=== PATIENT | female | born 1940 | race Caucasian/White ===

== ENCOUNTER 2018-06-24 23:26 | Emergency (ER) | payer MEDICARE ==
[2018-06-24 23:47] VITALS: BMI 28.3
[2018-06-24 23:56] VITALS: TEMP 97.6
--- NOTE | 2018-06-25 00:55 | ED PDOC ---
Arrival/HPI - General Chief Complaint: Lower Extremity Problem/Injury Time Seen by Provider: 06/25/18 00:37 Historian: Patient - History of Present Illness Narrative History of Present Illness (Text): 06/25/18 00:48 77 year old female, with a past medical history that includes hyperlipidemia, presents to emergency department with leg pain and rash since yesterday. Patient states she was walking past an area where someone was cutting the grass , and some shards of grass touched her legs. Patient states she then developed an itchy, burning, rash along her lower legs. Patient informs the rash has worsened since yesterday. Patient states she has no trouble walking. Patient informs using cortisone cream, with little effect. Patient denies any fever, chills, headache, dizziness, shortness of breath, chest pain, cough, abdominal pain, nausea, vomiting, diarrhea, back pain, neck pain, urinary output changes, or any other complaints. Time/Duration: 24 hours Quality: Burning Past Medical History - Provider Review Nursing Documentation Reviewed: Yes - Cardiac Hx Cardiac Disorders: Yes Hx Hypertension: Yes - Pulmonary Hx Respiratory Disorders: No - Psychiatric Hx Substance Use: No Family/Social History - Physician Review Nursing Documentation Reviewed: Yes Family/Social History: No Known Family HX Smoking Status: Never Smoked Hx Alcohol Use: No Hx Substance Use: No Allergies/Home Meds Allergies/Adverse Reactions: Allergies No Known Allergies Allergy (Verified 06/24/18 23:47) Home Medications: Home Meds Medication Instructions Recorded Confirmed Atorvastatin [Lipitor] 40 mg PO DAILY 06/24/18 06/24/18 Review of Systems - Physician Review All systems were reviewed & negative as marked: Yes - Review of Systems Constitutional: Normal. absent: Fevers, Night Sweats Eyes: Normal ENT: Normal Respiratory: Normal. absent: SOB, Cough Cardiovascular: Normal. absent: Chest Pain Gastrointestinal: Normal. absent: Abdominal Pain, Diarrhea, Nausea, Vomiting Genitourinary Female: Normal. absent: Urine Output Changes Musculoskeletal: Normal. absent: Back Pain, Neck Pain Skin: Rash Neurological: Normal. absent: Headache, Dizziness Endocrine: Normal Hemo/Lymphatic: Normal Psychiatric: Normal Physical Exam Vital Signs Reviewed: Yes Vital Signs Temp Pulse Resp BP Pulse Ox 06/24/18 23:54 97.6 F 83 19 165/80 H 98 Temperature: Afebrile Blood Pressure: Hypertensive Pulse: Regular Respiratory Rate: Normal Appearance: Positive for: Well-Appearing, Non-Toxic, Comfortable Pain Distress: None Mental Status: Positive for: Alert and Oriented X 3 - Systems Exam Head: Present: Atraumatic, Normocephalic Pupils: Present: PERRL Extroacular Muscles: Present: EOMI Conjunctiva: Present: Normal Mouth: Present: Moist Mucous Membranes Neck: Present: Normal Range of Motion Respiratory/Chest: Present: Clear to Auscultation, Good Air Exchange. No: Respiratory Distress, Accessory Muscle Use Cardiovascular: Present: Regular Rate and Rhythm, Normal S1, S2. No: Murmurs Abdomen: No: Tenderness, Distention, Peritoneal Signs Back: Present: Normal Inspection Upper Extremity: Present: Normal Inspection. No: Cyanosis, Edema Lower Extremity: Present: Edema (Bilateral leg edema), NORMAL PULSES (bilateral skin pulses intact and equal on distal extremities), Erythema (erythema and warmth to palpatiation) Neurological: Present: GCS=15, CN II-XII Intact, Speech Normal Skin: Present: Rashes (rash on ventral side of both lower legs) Psychiatric: Present: Alert, Oriented x 3, Normal Insight, Normal Concentration Medical Decision Making ED Course and Treatment: 06/25/18 01:02 Impression: 77 year old female presents with bilateral rash and pain on lower legs. Differential Diagnoses Include But Are Not Limited To: Plan: --Benadryl --Prednisone --Reassess & disposition Progress Notes 06/25/18 02:10 Will treat patient with PO antibiotics and steroids for cellulites. Skin demarcated and patient has been advised to observe for increase in cellulitic borders. Script given and patient is ambulatory without assistance. - Medication Orders Current Medication Orders: Discontinued Medications Diphenhydramine HCl (Benadryl) 25 mg PO STAT STA Stop: 06/25/18 00:57 Last Admin: 06/25/18 01:18 Dose: 25 mg Prednisone (Prednisone Tab) 60 mg PO STAT ONE Stop: 06/25/18 00:57 Last Admin: 06/25/18 01:18 Dose: 60 mg - Scribe Statement The provider has reviewed the documentation as recorded by the Scribronna Amin All medical record entries made by the Scribronna were at my direction and personally dictated by me. I have reviewed the chart and agree that the record accurately reflects my personal performance of the history, physical exam, medical decision making, and the department course for this patient. I have also personally directed, reviewed, and agree with the discharge instructions and disposition. Disposition/Present on Arrival - Present on Arrival Any Indicators Present on Arrival: No History of DVT/PE: No History of Uncontrolled Diabetes: No Urinary Catheter: No History of Decub. Ulcer: No History Surgical Site Infection Following: None - Disposition Have Diagnosis and Disposition been Completed?: Yes Diagnosis: Contact dermatitis, Cellulitis Disposition: HOME/ ROUTINE Disposition Time: 01:54 Patient Plan: Discharge Patient Problems: Current Active Problems Problem Status Onset Contact dermatitis Acute Cellulitis Acute Condition: STABLE Discharge Instructions (ExitCare): Cellulitis (Skin Infection), Adult (DC), Cellulitis (ED) Prescriptions: Cephalexin [Keflex] 500 mg PO BID 10 Days #20 capsule predniSONE [Prednisone] 20 mg PO DAILY 5 Days #5 tab Referrals: Arsen Vance MD [Primary Care Provider] - Follow up with primary Forms: [employer] (Mosotho)
[2018-06-25] MEDS ORDERED: DiphenhydrAMINE 12.5 mg/5 ml LIQ UD (5 ml) PO STA (00:56)
[2018-06-25 03:57] VITALS: RESP 18
[2018-06-25 04:00] VITALS: BP 142/67; PULSE 80; O2SAT 98
== END 2018-06-25 02:05 | disposition home or self-care (01) ==
LOC: ED 23:26 → MERGE 23:26 → ED 06-25 02:05
DX: L25.9 Unspecified contact dermatitis, unspecified cause (principal); L03.90 Cellulitis, unspecified; I10 Essential (primary) hypertension; E78.5 Hyperlipidemia, unspecified